=== PATIENT | male | born 1970 | race Two or more races ===

== ENCOUNTER → 2019-06-30 | Outpatient (CLI) | payer OTHER ==
[2019-06-30 13:05] LABS: BASO # 0.2 x10^3/uL (0.0-0.2); BASO % 1 % (0-3); EOS % 0 % (0-3); HEMATOCRIT 39.3 % (39.0-53.0); HEMOGLOBIN 12.9 g/dL (13.0-17.5); LYMPH # 1.1 x10^3/uL (1.0-4.8); LYMPH % 4 % (24-48); MEAN CORPUSCULAR HEMOGLOBIN 30 pg (25-35); MEAN CORPUSCULAR HGB CONC 33 g/dL (31-37); MEAN CORPUSCULAR VOLUME 93 fL (79-100); MONO # 1.4 x10^3/uL (0.0-1.1); MONO % 5 % (0-9); NEUT # 26.8 x10^3uL (1.8-7.7); NEUT % 91 % (31-73); PLATELET COUNT 450 x10^3/uL (140-400); RED BLOOD COUNT 4.24 x10^6/uL (4.30-5.70); WHITE BLOOD COUNT 29.6 x10^3/uL (4.0-11.0)
[2019-06-30 13:15] LABS: ALBUMIN/GLOBULIN RATIO 0.5 (1.0-1.7); CALCIUM 7.6 mg/dL (8.5-10.1); CREATININE 0.8 mg/dL (0.7-1.3); GFR 103.2; TOTAL BILIRUBIN 0.9 mg/dL (0.2-1.0); TOTAL PROTEIN 5.8 g/dL (6.4-8.2)
[2019-06-30 13:30] LABS: POTASSIUM 2.9 mmol/L (3.5-5.1)
[2019-06-30 13:40] LABS: % BANDS 10 % (0-9); % LYMPHS 4 % (24-48); % MONOS 6 % (0-10); % MYELOS 2 % (0-0); % SEGS 78 % (35-66)
[2019-06-30 13:44] LABS: PLT ESTIMATE INCREASED (ADEQUATE)
== END | disposition home or self-care (01) ==
LOC: EEVIPCON 12:52 → SPEC 12:52
PROVIDERS: ATTEND Family Medicine
DX: R10.9 Unspecified abdominal pain (principal)
CPT/HCPCS: 36415; 80053; 85007; 85025

== ENCOUNTER → 2019-07-08 | Outpatient (CLI) | payer OTHER ==
[~2019-07-08] MED LIST: IOHEXOL 300 MG/ML 75 ML VIAL. IV ONE
--- NOTE | 2019-07-08 09:08 | RAD ---
CT CHEST W/CONTRAST Indication: Lung mass Technique: Postcontrast CT imaging was performed of the chest, multiplanar reconstruction images submitted. One or more of the following individualized dose reduction techniques were utilized for this examination: 1. Automated exposure control 2. Adjustment of the mA and/or kV according to patient size 3. Use of iterative reconstruction technique. Comparison: None Findings: There is a very large collection of gas and fluid in the lateral right hemithorax centered along the pleural surface greater near the lung base although extends superiorly to the region of the right upper lobe. This in greatest dimension measures about 18.9 cm AP by 20.6 cm CC by up to about 15.9 cm transverse. There is resultant compressive atelectasis of the the entirety of the right lower lobe, minimally of the right middle lobe and right lower lobe. There is a very small dependent left pleural effusion. There is no significant infiltrate in the left. There are some mediastinal and right hilar nodes, one of the largest nodes in the subcarinal region about 1 cm short axis dimension. There is hepatic steatosis. There is no pericardial fluid. Thoracic aortic caliber is within normal limits. There is mild gas distention of esophagus. IMPRESSION: 1. There is a very large gas and fluid collection/empyema of the right hemithorax with compressive atelectasis which could obscure any associated adjacent mass. 2. There is very small left pleural effusion. 3. There is hepatic steatosis. Electronically signed by: Zeeshan Jolly MD (07/08/2019 9:05 AM) [id number]
== END | disposition home or self-care (01) ==
LOC: CT 08:05 → EEVIPCON 08:05
PROVIDERS: ATTEND Family Medicine
DX: J90 Pleural effusion, not elsewhere classified (principal); J98.11 Atelectasis; K76.0 Fatty (change of) liver, not elsewhere classified
CPT/HCPCS: 71260; Q9967

== ENCOUNTER → 2019-08-10 | Outpatient (CLI) | payer OTHER ==
[2019-08-10 10:51] LABS: BASO # 0.1 x10^3/uL (0.0-0.2); BASO % 2 % (0-3); EOS # 0.1 x10^3/uL (0.0-0.7); EOS % 2 % (0-3); HEMATOCRIT 31.6 % (39.0-53.0); HEMOGLOBIN 10.5 g/dL (13.0-17.5); LYMPH % 34 % (24-48); MEAN CORPUSCULAR HEMOGLOBIN 29 pg (25-35); MEAN CORPUSCULAR HGB CONC 33 g/dL (31-37); MEAN CORPUSCULAR VOLUME 88 fL (79-100); MONO # 0.5 x10^3/uL (0.0-1.1); MONO % 8 % (0-9); NEUT # 3.2 x10^3uL (1.8-7.7); NEUT % 54 % (31-73); PLATELET COUNT 269 x10^3/uL (140-400); RED BLOOD COUNT 3.59 x10^6/uL (4.30-5.70); RED CELL DISTRIBUTION WIDTH 14.4 % (11.5-14.5); WHITE BLOOD COUNT 5.9 x10^3/uL (4.0-11.0)
[2019-08-10 11:01] LABS: ALBUMIN 2.7 g/dL (3.4-5.0); ALBUMIN/GLOBULIN RATIO 0.7 (1.0-1.7); CALCIUM 8.1 mg/dL (8.5-10.1); CREATININE 1.1 mg/dL (0.7-1.3); GFR 71.4; POTASSIUM 3.9 mmol/L (3.5-5.1); TOTAL BILIRUBIN 0.2 mg/dL (0.2-1.0); TOTAL PROTEIN 6.7 g/dL (6.4-8.2)
[2019-08-10 12:02] LABS: SEDIMENTATION RATE 67 (0-15)
== END | disposition home or self-care (01) ==
LOC: EEVIPCON 10:22 → SPEC 10:22
PROVIDERS: ATTEND Family Medicine
DX: J94.2 Hemothorax (principal); J18.9 Pneumonia, unspecified organism
CPT/HCPCS: 36415; 80053; 85025; 85651; 86140

== ENCOUNTER → 2020-05-01 | Outpatient (CLI) | payer OTHER ==
[2020-05-01 10:45] LABS: BASO # 0.1 x10^3/uL (0.0-0.2); BASO % 1 % (0-3); EOS # 0.1 x10^3/uL (0.0-0.7); EOS % 2 % (0-3); HEMATOCRIT 42.2 % (39.0-53.0); HEMOGLOBIN 14.3 g/dL (13.0-17.5); LYMPH # 2.3 x10^3/uL (1.0-4.8); LYMPH % 37 % (24-48); MEAN CORPUSCULAR HEMOGLOBIN 31 pg (25-35); MEAN CORPUSCULAR HGB CONC 34 g/dL (31-37); MEAN CORPUSCULAR VOLUME 92 fL (79-100); MONO # 0.5 x10^3/uL (0.0-1.1); MONO % 8 % (0-9); NEUT # 3.2 x10^3uL (1.8-7.7); NEUT % 52 % (31-73); PLATELET COUNT 243 x10^3/uL (140-400); RED BLOOD COUNT 4.59 x10^6/uL (4.30-5.70); RED CELL DISTRIBUTION WIDTH 12.8 % (11.5-14.5); WHITE BLOOD COUNT 6.1 x10^3/uL (4.0-11.0)
== END ==
LOC: SPEC 09:10
PROVIDERS: ATTEND Nurse Practitioner Family
DX: J86.9 Pyothorax without fistula (principal)
CPT/HCPCS: 36415; 85025

== ENCOUNTER → 2020-12-03 | Outpatient (CLI) | payer OTHER ==
[2020-12-04 09:12] LABS: BASO # 0.1 x10^3/uL (0.0-0.2); BASO % 1 % (0-3); EOS % 0 % (0-3); HEMATOCRIT 43.5 % (39.0-53.0); HEMOGLOBIN 14.7 g/dL (13.0-17.5); LYMPH # 2.2 x10^3/uL (1.0-4.8); LYMPH % 30 % (24-48); MEAN CORPUSCULAR HEMOGLOBIN 31 pg (25-35); MEAN CORPUSCULAR HGB CONC 34 g/dL (31-37); MEAN CORPUSCULAR VOLUME 91 fL (79-100); MONO # 0.5 x10^3/uL (0.0-1.1); MONO % 6 % (0-9); NEUT # 4.6 x10^3uL (1.8-7.7); NEUT % 62 % (31-73); PLATELET COUNT 239 x10^3/uL (140-400); RED BLOOD COUNT 4.76 x10^6/uL (4.30-5.70); RED CELL DISTRIBUTION WIDTH 13.7 % (11.5-14.5); WHITE BLOOD COUNT 7.4 x10^3/uL (4.0-11.0)
[2020-12-04 11:54] LABS: ALBUMIN 4.6 g/dL (3.4-5.0); ALBUMIN/GLOBULIN RATIO 1.6 (1.0-1.7); CALCIUM 9.1 mg/dL (8.5-10.1); CREATININE 0.9 mg/dL (0.7-1.3); GFR 89.7; POTASSIUM 3.9 mmol/L (3.5-5.1); TOTAL BILIRUBIN 0.4 mg/dL (0.2-1.0); TOTAL PROTEIN 7.5 g/dL (6.4-8.2)
== END ==
LOC: EEVIPCON 20:26 → SPEC 20:26
PROVIDERS: ATTEND Family Medicine
DX: E86.0 Dehydration (principal)
CPT/HCPCS: 36415; 80053; 85025